=== PATIENT | male | born 1990 | race Caucasian/White ===

== ENCOUNTER 2018-02-10 10:05 | Emergency (ER) | payer OTHER ==
[2018-02-10] MEDS ORDERED: DIPHTH/TETANUS/ACEL. PERTUSSIS IM ONLY ONE (10:15)
--- NOTE | 2018-02-10 10:18 | ER Report ---
History and Physical Time Seen By MD: 10:16 Hx. 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 Cardiovascular: No chest pain, no palpitations. Gastrointestinal: No vomiting, no abdominal pain. Musculoskeletal: No back pain. Allergies: Coded Allergies: No Known Drug Allergies (Unverified , 02/10/18) Home Meds No Active Prescriptions or Reported Meds Reviewed Nurses Notes: Yes Old Medical Records Reviewed: Yes Constitutional Vital Sign - Last 24 Hours 02/10/18 02/10/18 02/10/18 02/10/18 10:05 10:09 10:20 10:35 Temp 98.0 Pulse 89 81 72 Resp 16 B/P (MAP) 121/77 121/77 (92) Pulse Ox 97 96 O2 Delivery Room Air 02/10/18 02/10/18 02/10/18 02/10/18 10:50 10:55 11:10 11:25 Pulse 88 70 68 73 Pulse Ox 95 95 94 97 02/10/18 11:40 Pulse 71 B/P (MAP) 118/76 (90) Pulse Ox 97 Physical Exam General appearance: [Alert no distress.] Respiratory: Chest is non tender, lungs are clear to auscultation. Cardiac: Regular rate and rhythm [ ] Hand examination patient on the palmar aspect of his dominant right hand just proximal to the nailbed is a 1 x 2 cm laceration venous bleeding noted neurovascularly intact DIFFERENTIAL DIAGNOSIS: After history and physical exam differential diagnosis was considered for laceration Medical Decision Making ED Course/Re-evaluation ED Course ED clinical course a 27-year-old male yesterday sliced off a chunk of all of his neck is dominant right hand I used Surgicel and anti-quite powder obtained hemostasis clear dressing update his tetanus we'll do a primary care follow-up Decision to Disposition Date: Feb 10, 2018 Decision to Disposition Time: 11:55 Depart Departure Latest Vital Signs Vital Signs Date Time Temp Pulse Resp B/P (MAP) Pulse Ox O2 Delivery O2 Flow Rate FiO2 02/10/18 11:40 71 118/76 (90) 97 02/10/18 10:05 98.0 16 Room Air Impression: Primary Impression: Laceration Condition: Stable Disposition: HOME OR SELF-CARE New Scripts No Active Prescriptions or Reported Meds Patient Instructions: Acute Wound Care (DC) EMMA JONES MD Feb 10, 2018 10:18
[2018-02-10 11:40] VITALS: BP 118/76
== END 2018-02-10 11:58 | disposition home or self-care (01) ==
LOC: ER 10:22
DX: S61.012A Laceration without foreign body of left thumb without damage to nail, initial encounter (principal)
CPT/HCPCS: 90471; 90715; 99282

== ENCOUNTER 2018-02-10 19:59 | Emergency (ER) | payer OTHER ==
[2018-02-10 20:04] VITALS: BP 110/76
--- NOTE | 2018-02-10 20:08 | ER Report ---
History and Physical Time Seen By MD: 20:04 HPI/ROS CHIEF COMPLAINT: Laceration to right thumb HISTORY OF PRESENT ILLNESS: This is a 27-year-old male presents to the emergency department for a laceration to the right thumb. 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 The wound was not suturable, they did place clotting material on the wound. Patient did try to go back to work noticed that it soaked through this evening and decided to come back in for reevaluation. The wound is oozing serous fluid otherwise no bleeding. No other interventions are needed at this time. CMS intact. Allergies: Coded Allergies: No Known Drug Allergies (Unverified , 02/10/18) Home Meds No Active Prescriptions or Reported Meds Past Medical/Surgical History The patient has a past medical and surgical history of food poisoning, dental surgery. Reviewed Nurses Notes: Yes Constitutional Vital Sign - Last 24 Hours 02/10/18 20:04 Temp 98.5 Pulse 70 Resp 16 B/P (MAP) 110/76 Pulse Ox 98 O2 Delivery Room Air Physical Exam General appearance: Alert no distress. Respiratory: Chest is non tender, lungs are clear to auscultation. Cardiac: Regular rate and rhythm. Integumentary: Avulsion to the to the right thumb the finger nail is still intac t. serious fluid, no active bleeding. DIFFERENTIAL DIAGNOSIS: After history and physical exam differential diagnosis was considered for avulsion. Medical Decision Making ED Course/Re-evaluation ED Course The patient was admitted to a room. A history and physical were obtained. Differential diagnoses were considered. After reevaluation of the patient's right thumb there is no active bleeding, primarily serous fluid oozing from the avulsed wound. The wound was redressed with a nonadhesive dressing and tube gauze, the patient was instructed to monitor for signs of infection, keep the pressure dressing on for the next 24-48 hours. He can change the dressing as needed. Return to the ER for any other concerns or worsening symptoms. Patient was in agreement with this plan of care and discharged home. Patient's tetanus is was updated earlier today. Decision to Disposition Date: Feb 10, 2018 Decision to Disposition Time: 20:17 Depart Departure Latest Vital Signs Vital Signs Date Time Temp Pulse Resp B/P (MAP) Pulse Ox O2 Delivery O2 Flow Rate FiO2 10/3/18 20:04 98.5 70 16 110/76 98 Room Air Impression: Primary Impression: Skin avulsion Condition: Improved Disposition: HOME OR SELF-CARE New Scripts No Active Prescriptions or Reported Meds Patient Instructions: Acute Wound Care (ED), Finger Laceration (ED) Additional Instructions: Keep wound dry for 48 hours. Monitor for signs of infection; redness, swelling, heat, discharge, increasing pain or red streaking. Take Tylenol or Ibuprofen as needed for pain. Return to the ER with any concerns. You may change dressing as needed. AJITH MAHAN SENIOR PRINCIPAL ARCHITECT-BC Feb 10, 2018 20:08
== END 2018-02-10 20:25 | disposition home or self-care (01) ==
LOC: ER 20:15
DX: S61.011A Laceration without foreign body of right thumb without damage to nail, initial encounter (principal)
CPT/HCPCS: 99282

== ENCOUNTER 2018-02-16 12:07 | Emergency (ER) | payer OTHER ==
[2018-02-16 12:39] VITALS: BP 105/80
--- NOTE | 2018-02-16 13:59 | ER Report ---
History and Physical Time Seen By MD: 13:59 Hx. of Stated Complaint: SLICED THUMB LAST WEEK, WAS SEEN HERE AND NOW HE THINKS IT IS INFECTED. aPPEARS SORE AND RED HPI/ROS This is an otherwise healthy 27-year-old male who lacerated his right thumb one week ago while at work using a meat scrubber. He was seen in the emergency department. The superficial laceration did not require any closure. He notes that prior to the injury with a meat scrubber, he noticed a possible infection starting in his cuticle of the same thumb. Now one week later, the infection to his cuticle of his left thumb has increased both in size and pain. He has not changed the dressing since the original injury. 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 The injury has made him unable to play his instruments. Remainder of the 14 system rev: Yes Allergies: Coded Allergies: No Known Drug Allergies (Unverified , 02/16/18) Home Meds Active Scripts Sulfamethoxazole/Trimet 800-160 Mg Tab (BACTRIM DS TABLET) 1 Each Tablet, 1 TAB PO Q12H for 10 Days, #20 TAB Prov:PATRICIO RUSSELL MD 02/16/18 Cephalexin Monohydrate (CEPHALEXIN) 500 Mg Cap, 500 MG PO BID for 10 Days, #20 CAP 0 Refills Prov:PATRICIO RUSSELL MD 02/16/18 Reviewed Nurses Notes: Yes Old Medical Records Reviewed: Yes Hx Smoking: No Smoking Status: Never Smoker Exposure to Second Hand Smoke?: Yes Hx Substance Use Disorder: No Hx Alcohol Use: No Constitutional Physical Exam General appearance: alert no distress Right hand: There is no significant swelling. There is no obvious deformity to the hand. There is tenderness to palpation at the left thumb Skin: Old laceration to the left thumb noted. There is a moderate amount of dried blood. There is a small amount of pus and erythema proximal to the left nail bed Neurologic exam: The patient has normal sensation distal to the injury. Tendon function is intact. Vascular exam: Normal pulses and capillary refill in the fingers DIFFERENTIAL DIAGNOSIS: After history and physical exam differential diagnosis was considered for wound infection, paronychia, felon Medical Decision Making ED Course/Re-evaluation ED Course paronychia in thumb, placed on abx Decision to Disposition Date: Mar 08, 2018 Decision to Disposition Time: 18:07 Depart Departure Latest Vital Signs Impression: Primary Impression: Paronychia of finger of right hand Condition: Improved Disposition: HOME OR SELF-CARE New Scripts Sulfamethoxazole/Trimet 800-160 Mg Tab (BACTRIM DS TABLET) 1 Each Tablet 1 TAB PO Q12H for 10 Days, #20 TAB Prov: PATRICIO RUSSELL MD 02/16/18 Cephalexin Monohydrate (CEPHALEXIN) 500 Mg Cap 500 MG PO BID for 10 Days, #20 CAP 0 Refills Prov: PATRICIO RUSSELL MD 02/16/18 Patient Instructions: Paronychia (ED) PATRICIO RUSSELL MD Feb 16, 2018 13:59
[2018-02-16] MEDS ORDERED: TRIMETH/SULFA DS 160-800MG TAB PO ONE (15:00)
[2018-02-16] MEDS ORDERED: CEPHALEXIN MONO 500 MG CAP PO ONE (15:00)
[2018-02-16] MEDS ORDERED: LIDOCAINE 1%MDV(*)200 MG/20 ML 1 ML ONE (15:27)
[2018-02-16] MEDS ORDERED: BUPIVACAINE 0.5% INJ 50ML VIAL INFIL ONE (15:27)
[2018-02-16] MEDS ORDERED: SULF-198 PO (16:36)
[2018-02-16] MEDS ORDERED: CEPH500C24 PO (16:36)
== END 2018-02-16 16:51 | disposition home or self-care (01) ==
LOC: ER 14:21
DX: L03.011 Cellulitis of right finger (principal)
CPT/HCPCS: 99283